=== PATIENT | male | born 1940 | race Caucasian/White ===

== ENCOUNTER 2018-05-31 13:57 | Emergency (ER) | payer MEDICARE ==
[~2018-05-31] VITALS: Ht 188 cm; Wt 136.1 kg
[2018-05-31 14:16] VITALS: BP_SYST 148
[2018-05-31] MEDS ORDERED: NACL 0.9% 1,000 ML IV ONE (14:46)
[2018-05-31] MEDS ORDERED: CLOPIDOGREL BISULFATE 75 MG TABLET PO ONE (15:00)
[2018-05-31] MEDS ORDERED: ALBUTEROL SULFATE 0.083% 2.5 MG/3 ML VIAL.NEB IH ONE (15:00)
[2018-05-31] MEDS ORDERED: NS 1000 ML IV.SOLN IV ONE (15:00)
[2018-05-31] MEDS ORDERED: methylPREDNISolone SOD SUCC/PF 62.5 MG/ML VIAL IVP ONE (15:00)
[2018-05-31] MEDS ORDERED: IPRATROPIUM BROM 0.5 MG/2.5 ML VIAL.NEB (ATROVENT) IH ONE (15:00)
[2018-05-31] MEDS ORDERED: ASPIRIN 81 MG TAB.CHEW PO ONE ×2 (15:00)
[2018-05-31 15:22] LABS: CHLORIDE 103 mmol/L (98-107); POTASSIUM 4.2 mmol/L (3.5-5.1); SODIUM SERUM 136 mmol/L (136-145)
[2018-05-31 15:23] LABS: ANION GAP 6 (5-15); CALCIUM 10.4 mg/dL (8.4-11.0); CREATININE 1.21 mg/dL (0.55-1.30); GLUCOSE 177 mg/dL (70-99); UREA NITROGEN, BLOOD 12 mg/dL (8-21)
[2018-05-31 15:27] LABS: PROTHROMBIN TIME 10.5 SECS (9.5-12.5)
[2018-05-31 15:28] LABS: ALANINE AMINOTRANSFERASE 366 U/L (12-78); ALBUMIN 3.5 g/dL (3.4-4.8); ASPARTATE AMINOTRANSFERASE 282 U/L (10-37); LIPASE 423 U/L (73-393); TOTAL BILIRUBIN 4.2 mg/dL (0.0-1.0)
[2018-05-31 16:01] LABS: HEMATOCRIT 47.8 % (36-54); HEMOGLOBIN 15.8 g/dL (14.0-18.0); MEAN CORPUSCULAR HEMOGLOBIN 32 pg (27-31); MEAN CORPUSCULAR HGB CONC 33 % (32-36); MEAN CORPUSCULAR VOLUME 98 fL (79.0-98.0); RED BLOOD CELL COUNT(AUTO) 4.89 MIL/uL (4.2-6.2); WHITE BLOOD COUNT (AUTO) 7.4 K/uL (4.8-10.8)
[2018-05-31 16:02] LABS: PLATELET COUNT (AUTO) 131 K/uL (130-430)
[2018-05-31 16:47] LABS: BAND % (MANUAL) 31 % (0-6); BASOPHILS % (MANUAL) 0 % (0-2); EOSINOPHILS % (MANUAL) 1 % (0-7); LYMPHOCYTES % (MANUAL) 9 % (20-46); MONOCYTES % (MANUAL) 7 % (0-11)
[2018-05-31 17:12] LABS: BILIRUBIN,URINE NEGATIVE (NEGATIVE); BLOOD, URINE NEGATIVE (NEGATIVE); CLARITY/URINE CLEAR (CLEAR); COLOR,URINE YELLOW (YELLOW); GLUCOSE,URINE NEGATIVE (NEGATIVE); KETONES,URINE NEGATIVE (NEGATIVE); LEUKOCYTE ESTERASE ,URINE NEGATIVE (NEGATIVE); NITRITE, URINE NEGATIVE (NEGATIVE); PH,URINE 8.5 (5.0-8.0); PROTEIN URINE NEGATIVE (NEGATIVE)
[2018-05-31 20:18] VITALS: BP_SYST 144
== END 2018-05-31 20:18 | disposition short-term general hospital (02) ==
LOC: SED 13:57
DX: K81.9 Cholecystitis, unspecified (principal); R07.89 Other chest pain; R06.02 Shortness of breath; R74.0 Nonspecific elevation of levels of transaminase and lactic acid dehydrogenase [LDH]; R17 Unspecified jaundice; R09.02 Hypoxemia; R16.1 Splenomegaly, not elsewhere classified; E16.2 Hypoglycemia, unspecified
CPT/HCPCS: 36415; 36600; 71045; 74176; 76700; 80053; 81003; 82550; 82803; 83605; 83690; 84484; 85007; 85027; 85610; 85730; 87040; 93005; 94640; 96374; 99285; J2930; J7030; J7613